=== PATIENT | female | born 1935 | race African-American/Black ===

== ENCOUNTER → 2016-05-30 | Outpatient (CLI) | payer MEDICARE ==
[2016-05-30 12:34] LABS: BASO % 1 % (0-3); EOS % 2 % (0-3); HEMATOCRIT 44.1 % (36.0-47.0); HEMOGLOBIN 14.4 g/dL (12.0-15.5); LYMPH # 1.5 x10^3/uL (1.0-4.8); LYMPH % 32 % (24-48); MEAN CORPUSCULAR HEMOGLOBIN 31 pg (25-35); MEAN CORPUSCULAR HGB CONC 33 g/dL (31-37); MEAN CORPUSCULAR VOLUME 95 fL (79-100); MONO % 9 % (0-9); NEUT % 57 % (31-73); PLATELET COUNT 225 x10^3/uL (140-400); RED BLOOD COUNT 4.63 x10^6/uL (3.50-5.40); RED CELL DISTRIBUTION WIDTH 14.3 % (11.5-14.5); WHITE BLOOD COUNT 4.6 x10^3/uL (4.0-11.0)
[2016-05-30 13:07] LABS: ALBUMIN 3.8 g/dL (3.4-5.0); ALBUMIN/GLOBULIN RATIO 0.9 (1.0-1.7); CALCIUM 9.4 mg/dL (8.5-10.1); CREATININE 0.8 mg/dL (0.6-1.0); GFR 82.9; POTASSIUM 4.2 mmol/L (3.5-5.1); TOTAL BILIRUBIN 0.4 mg/dL (0.2-1.0)
== END | disposition home or self-care (01) ==
LOC: LAB 12:04
PROVIDERS: ATTEND Psychiatry & Neurology Neurology
DX: R41.3 Other amnesia (principal)
CPT/HCPCS: 36415; 80053; 82306; 82607; 84443; 85027

== ENCOUNTER → 2016-06-08 | Outpatient (CLI) | payer MEDICARE ==
--- NOTE | 2016-06-08 21:19 | EEG ---
DATE OF SERVICE: 06/08/2016 EEG NUMBER: [id number] OBJECTIVE: This is an 81-year-old -[place] female patient with history of memory loss and confusional episodes. EEG was requested to evaluate cerebral activity and help rule out subclinical seizure. METHOD: 20 electrodes were applied according to the International 10-20 electrode placement system. EKG monitoring, hyperventilation, intermittent photic stimulation, monopolar and bipolar montages are routinely utilized. The record was obtained on a digital system with video monitoring. FINDINGS: 1. Background: The patient was recorded in the awake and drowsy states. No actual sleep state was recorded. The overall background amplitude is 10-30 microvolts. A posterior dominant rhythm of 6-8 Hz is observed. Mostly in 7 Hz range. 2. Abnormalities: No specific epileptiform discharge or electrographic seizure is seen. No focal or diffuse slowing. 3. Activation: Hyperventilation was performed with fair efforts and normal response. Intermittent photic stimulation was performed with photic driving. IMPRESSION: This EEG falls into the abnormal category of the study for the awake and drowsy states. No sleep state was recorded. The posterior dominant rhythm of 6-8 Hz is slow for age. No focal, lateralizing, specific epileptiform discharge, or electrographic seizure is seen. ZEYAD MOROCHO MD DR: SHAWN/damian JOB#: [id number] / [id number] LIVE
== END | disposition home or self-care (01) ==
LOC: RT 07:42
PROVIDERS: ATTEND Psychiatry & Neurology Neurology
DX: R41.3 Other amnesia (principal); R41.0 Disorientation, unspecified
CPT/HCPCS: 95816